=== PATIENT | male | born 1995 | race Caucasian/White ===

== ENCOUNTER → 2017-07-16 | Outpatient (REF) | payer MEDICAID, OTHER ==
[2015-10-24 10:00] VITALS: BMI 28.7
[~2017-07-16] MED LIST: ACET-1966 PO; ARIP10TA4 PO; ARIP5TAB28 PO; ATOM100C2 PO; CLON-303 PO; CLON-327 PO; FLU20 PO; MULT-1379 PO; TRAZ-163 PO; VIVANCE PO
== END ==
LOC: ZZSENDIN 12:00
PROVIDERS: ATTEND Orthopaedic Surgery Hand Surgery
DX: L95.8 Other vasculitis limited to the skin (principal)
CPT/HCPCS: 88305